=== PATIENT | male | born 1970 | race Caucasian/White ===

== ENCOUNTER 2016-06-09 12:26 | Day surgery (SDC) | payer BC ==
--- NOTE | ~2016-06-09 | EGD ---
EGD REPORT [facility] [address] [place] [address] NAME: JOSSE FUENTES JR : 66 STATUS : REG [facility] [place] PAT#: [id number] AGE: 46 ADM/REG DATE : 06/09/16 MR#: [id number] REPORT SERV DATE: 06/09/16 DICTATED BY: ANDRESSA YOUNG DATE: 06/09/16 REPORT STATUS : Draft TRANSCRIBED BY: [facility] DATE: 06/09/16 [facility] Patient Name: Josse Fuentes Date of : 1970 Attending MD: BENSON YOUNG MD Procedure Date No Time: 06/09/2016 Procedure: Colonoscopy Indications: Hematochezia Referring MD: Salvador Walsh Medicines: See the Anesthesia note for documentation of the administered medications Complications: No immediate complications. Estimated blood loss: None. Procedure: Pre-Anesthesia Assessment: - ASA Grade Assessment: III - A patient with severe systemic disease. - Prior to the procedure, a History and Physical was performed, and patient medications and allergies were reviewed. The patient's tolerance of previous anesthesia was also reviewed. The risks and benefits of the procedure and the sedation options and risks were discussed with the patient. All questions were answered, and informed consent was obtained. Prior Anticoagulants: The patient has taken no previous anticoagulant or antiplatelet agents. After reviewing the risks and benefits, the patient was deemed in satisfactory condition to undergo the procedure. After I obtained informed consent, the scope was passed under direct vision. Throughout the procedure, the patient's blood pressure, pulse, and oxygen saturations were monitored continuously. The PCF [id number] was introduced through the anus and advanced to the terminal ileum. The colonoscopy was performed without difficulty. The ileocecal valve, appendiceal orifice, terminal ileum and rectum were photographed. The entire colon was examined. The colonoscopy was performed without difficulty. The patient tolerated the procedure well. The quality of the bowel preparation was adequate. Findings: The perianal and digital rectal examinations were normal. The terminal ileum appeared normal. A sessile polyp was found in the transverse colon. The polyp was 3 mm in size. The polyp was removed with a cold biopsy forceps. Resection and retrieval were complete. Two sessile polyps were found in the sigmoid colon. The polyps were EGD REPORT [address] [address] NAME: JOSSE FUENTES JR : 66 STATUS : REG [facility]#: [id number] AGE: 46 ADM/REG DATE : 06/09/16 MR#: [id number] REPORT SERV DATE: 06/09/16 DICTATED BY: ANDRESSA YOUNG DATE: 06/09/16 REPORT STATUS : Draft TRANSCRIBED BY: [employer] DATE: 06/09/16 small in size. These polyps were removed with a cold snare. Resection and retrieval were complete. Non-bleeding internal hemorrhoids were found during retroflexion and were Grade I (internal hemorrhoids that do not prolapse). No other significant abnormalities were identified in a careful examination of the remainder of the colon. A few small-mouthed diverticula were found in the sigmoid colon. Impression: - The examined portion of the ileum was normal. - One 3 mm polyp in the transverse colon. Resected and retrieved. - Two small polyps in the sigmoid colon. Resected and retrieved. - Non-bleeding internal hemorrhoids. - Mild diverticulosis in the sigmoid colon. Recommendation: - Patient has a contact number available for emergencies. The signs and symptoms of potential delayed complications were discussed with the patient. Return to normal activities tomorrow. Written discharge instructions were provided to the patient. - Regular diet. - Discharge patient to home. - Continue present medications. - Await pathology results. - Repeat colonoscopy in 5-10 years for surveillance based on pathology results. Procedure Code(s): --- Professional --- 98170, Colonoscopy, flexible, proximal to splenic flexure; with removal of tumor(s), polyp(s), or other lesion(s) by snare technique 12958, 59, Colonoscopy, flexible, proximal to splenic flexure; with biopsy, single or multiple Diagnosis Code(s): --- Professional --- K64.0, First degree hemorrhoids K57.30, Diverticulosis of large intestine without perforation or abscess without bleeding D12.3, Benign neoplasm of transverse colon D12.5, Benign neoplasm of sigmoid colon K92.1, Melena CPT copyright 2013 [employer]. All rights reserved. The codes documented in this report are preliminary and upon ethernet network architect review may EGD REPORT [facility] [address] [address] NAME: JOSSE FUENTES : [birth year] STATUS : [place] [facility] [place] PAT#: [id number] AGE: 46 ADM/REG DATE : 06/09/16 MR#: [id number] REPORT SERV DATE: 06/09/16 DICTATED BY: ANDRESSA YOUNG DATE: 06/09/16 REPORT STATUS : Draft TRANSCRIBED BY: [employer] DATE: 06/09/16 be revised to meet current compliance requirements. BENSON YOUNG MD 06/09/2016 2:20 PM This report has been signed electronically. Number of Addenda: 0 Note Initiated On: 06/09/2016 1:14 PM Scope Withdrawal Time 0 hours 12 minutes 6 seconds [address] [id number]
[~2016-06-09 12:26] MED LIST: IBU800 PO; PT DENIES HOME MEDS; ULTRAM50 PO
== END 2016-06-09 23:59 | disposition home or self-care (01) ==
LOC: DMU 12:26
PROVIDERS: Internal Medicine Gastroenterology
PROC: 0DBL8ZZ Excision of Transverse Colon, Via Natural or Artificial Opening Endoscopic (ICD-10-PCS; principal; 2016-06-09 14:00)
PROC: 0DBN8ZZ Excision of Sigmoid Colon, Via Natural or Artificial Opening Endoscopic (ICD-10-PCS; 2016-06-09 14:00)
DX: D12.3 Benign neoplasm of transverse colon (principal); D12.5 Benign neoplasm of sigmoid colon; K63.5 Polyp of colon; K64.0 First degree hemorrhoids; K57.30 Diverticulosis of large intestine without perforation or abscess without bleeding; G47.33 Obstructive sleep apnea (adult) (pediatric); E66.01 Morbid (severe) obesity due to excess calories; Z68.41 Body mass index [BMI] 40.0-44.9, adult; Z87.891 Personal history of nicotine dependence; Z90.49 Acquired absence of other specified parts of digestive tract
CPT/HCPCS: 88305